=== PATIENT | female | born 1980 | race Hispanic/Latino ===

== ENCOUNTER 2017-01-19 09:42 | Day surgery (SDC) | payer SELFPAY ==
[~2017-01-19] VITALS: Ht 157.5 cm; Wt 65.2 kg
[~2017-01-19 09:42] MED LIST: 0.9% Sodium Chloride 1,000 ML IV SCH; IBUP200T48 PO; Sodium Chloride LOK Flush 10 mL Syringe IV PRN; fentaNYL-PF 50 mCg/mL 2 mL Inj IVPUSH PRN
[2017-01-19] MEDS ORDERED: OMEP20TA86 PO (10:52)
[2017-01-19 10:54] VITALS: BP 141/85; PULSE 56; RESP 12; O2SAT 100
[2017-01-19 11:21] VITALS: BP 141/79; PULSE 54; RESP 14; O2SAT 99
[2017-01-19 11:31] VITALS: BP 141/79; PULSE 64; RESP 14; O2SAT 100
[2017-01-19 11:41] VITALS: BP 125/79; PULSE 58; RESP 14; O2SAT 100
[2017-01-19 11:51] VITALS: BP 152/80; PULSE 61; RESP 16; O2SAT 100
--- NOTE | 2017-01-19 13:51 | ENDO ---
[address] [address] ENDOSCOPY PROCEDURE PATIENT: RONY DE SANTIAGO : 1980 MR#: [id number] ADMIT: 01/19/2017 JOB ID: [id number] DATE: 01/19/2017 PROCEDURE: Esophagogastroduodenoscopy. INDICATION: Epigastric pain. The patient's ASA classification is 1. Mallampati score is 2. MEDICATIONS: 1. Versed 3 mg. 2. Fentanyl 75 mcg. INSTRUMENT USED: GIF H 180 J. PROCEDURAL DETAILS: After informed consent was obtained, the patient was brought into the GI suite, where she was placed on oxygen via nasal cannula and monitored with continuous pulse oximeter, telemetry and blood pressure monitoring. A time-out was performed. Then, she was placed in the left lateral decubitus position and a bite block was placed and then medications were administered for sedation. A standard EGD scope was inserted through the bite block and advanced under direct visualization to the second portion of the duodenum without difficulty. FINDINGS: 1. Normal appearing duodenal bulb, first and second portion. Multiple random biopsies were obtained. 2. Normal appearing pylorus. In the antrum and body of stomach, there was mild erythema suggestive of mild gastritis. Multiple random biopsies were obtained. 3. Retroflexed views in the gastric body revealed a normal-appearing cardia and fundus. 4. The GE junction was regular at 36 cm. 5. Normal appearing esophagus. IMPRESSION: Mild gastritis, otherwise normal examination to second portion of the duodenum. RECOMMENDATIONS: 1. Await biopsy results. 2. Continue current medications. 3. Followup in GI clinic. COMPLICATIONS: None. ESTIMATED BLOOD LOSS: Less than 5 mL.
--- NOTE | 2017-01-22 14:14 | PATH ---
SURGICAL PATHOLOGY Attending Physician:Danitza Luna CASE STATUS: Signed Out PATIENT NAME: RONY DE SANTIAGO PID: [id number] : 1980 DATE COLLECTED:01/19/2017 20:59 SPECIMEN: 1: Duodenum, Biopsy 2: Gastric, Biopsy CLINICAL HISTORY: EPIGASTRIC PAIN 1). DUODENUM BIOPSY 2). GASTRIC BIOPSY FINAL DIAGNOSIS: 1.DUODENUM BIOPSY: FRAGMENTS OF NORMAL-APPEARING SMALL BOWEL MUCOSA. Normal delicate mucosal villi present. Negative for significant inflammation, dysplasia and malignancy. 2.GASTRIC BIOPSY: DIFFUSE SEVERE CHRONIC GASTRITIS INVOLVING ANTRAL MUCOSA. ORGANISMS IDENTIFIED CONSISTENT WITH HELICOBACTER PYLORI. Negative for intestinal metaplasia. Negative for dysplasia and malignancy. ICD10 code B96.81 GROSS DESCRIPTION: Received are two formalin-filled containers, both labeled with the patient' s name: 1. Received in formalin, labeled with the patient' s name and "duodenum BX", are four fragments of lugo, soft tissue ranging in size from 0.1 x 0.1 x 0.1 cm to 0.2 x 0.2 x 0.1 cm. All fragments are totally submitted in cassette 1A. 2. Received in formalin, labeled with the patient' s name and "gastric BX", is one fragment of lugo, soft tissue measuring 0.2 x 0.1 x 0.1 cm. The fragment is totally submitted in cassette 2A. ([id number]) MICRO DESCRIPTION: See diagnosis. ICD-9 CODES: CPT CODES: 1: 43134 2: 54815 Electronically Signed Out Daniel Galvez MD [facility] [address], [place] [address] Technical component performed at [facility], [address], [place], [address]
== END 2017-01-19 23:59 | disposition home or self-care (01) ==
LOC: END 09:42
PROVIDERS: ATTEND Internal Medicine Gastroenterology
DX: K29.50 Unspecified chronic gastritis without bleeding (principal); B96.81 Helicobacter pylori [H. pylori] as the cause of diseases classified elsewhere; K21.9 Gastro-esophageal reflux disease without esophagitis; K59.00 Constipation, unspecified
CPT/HCPCS: 43239; G0500; J2250; J3010; J7030